=== PATIENT | male | born 1925 | race Caucasian/White ===

== ENCOUNTER 2016-08-02 11:11 | Emergency (ER) | payer MEDICARE ==
[2016-08-02 11:32] VITALS: BP 136/80
--- NOTE | 2016-08-02 11:42 | EDM.PDOC ---
ED HPI GENERAL MEDICAL PROBLEM - General Chief Complaint: Genitourinary Problem Stated Complaint: BLOOD IN URINE Time Seen by Provider: 08/02/16 11:42 Source of Information: Reports: Patient History Limitations: Reports: No Limitations - History of Present Illness INITIAL COMMENTS - FREE TEXT/NARRATIVE: Pt arrived with hematuria. This does not cause him any pain. 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/15 11:41 [bee venom (honey bee)] Shock Home Meds: Home Meds Aspirin 81 mg PO BEDTIME 07/24/15 [History] Rosuvastatin [Crestor] 10 mg PO ASDIRECTED 07/24/15 [History] Past Medical History HEENT History: Reports: Cataract, Glaucoma, Hard of Hearing, Impaired Vision, Sinusitis Gastrointestinal History: Reports: Chronic Constipation Musculoskeletal History: Reports: Arthritis, Fracture, Other (See Below) Other Musculoskeletal History: left elbow Hematologic History: Reports: Blood Transfusion(s) - Infectious Disease History Infectious Disease History: Reports: Chicken Pox, Measles, Mumps - Past Surgical History HEENT Surgical History: Reports: Cataract Surgery Male Surgical History: Reports: TURP-Transurethral Resection of Prostate Musculoskeletal Surgical History: Reports: Hip Replacement, Other (See Below) Social & Family History - Tobacco Use Smoking Status *Q: Never Smoker Second Hand Smoke Exposure: No - Caffeine Use Caffeine Use: Reports: None - Alcohol Use Days Per Week of Alcohol Use: 5 Number of Drinks Per Day: 2 Total Drinks Per Week: 10 - Recreational Drug Use Recreational Drug Use: No ED ROS GENERAL - Review of Systems Review Of Systems: See Below Constitutional: Reports: No Symptoms HEENT: Reports: No Symptoms Respiratory: Reports: No Symptoms Cardiovascular: Reports: No Symptoms Endocrine: Reports: No Symptoms GI/Abdominal: Reports: No Symptoms : Reports: Hematuria, Other (pt is having hematuria without pain . He states this started this am. He has ad a tur in the past. He has no pain with voiding. He did have some difficulty voiding early this am. While he was here he had trouble at first and then he felt like a blood clot was present that let loose and he voided well. ) Musculoskeletal: Reports: No Symptoms Skin: Reports: No Symptoms ED EXAM, RENAL/ - Physical Exam Exam: See Below Text/Narrative:: Pt arrived with blood in the urine. He is not having pain with voiding. Exam Limited By: No Limitations General Appearance: Alert, Anxious Ears: Normal TMs Nose: Normal Inspection Throat/Mouth: Normal Inspection Head: Atraumatic Neck: Normal Inspection Respiratory/Chest: No Respiratory Distress Cardiovascular: Regular Rate, Rhythm GI/Abdominal: Soft, Non-Tender Rectal (Males) Exam: Deferred Back Exam: Normal Inspection Extremities: Normal Inspection Course - Vital Signs Last Recorded V/S: Last Vital Signs Temp 36.5 C 08/02/16 11:33 Pulse 69 08/02/16 11:33 Resp 16 08/02/16 11:33 BP 136/80 08/02/16 11:33 Pulse Ox 94 L 08/02/16 11:33 - Orders/Labs/Meds Orders: Active Orders 24 hr Category Date Time Status Abdomen Pelvis w Cont [CT] Stat Exams 08/02/16 11:54 Taken CULTURE URINE [RM] Stat Lab 08/02/16 11:47 Received CULTURE URINE [RM] Stat Lab 08/02/16 13:10 Uncollected Iopamidol [Isovue-300 (61%)] Med 08/02/16 12:12 Active 100 ml IV . DIRECTED PRN Sodium Chloride 0.9% [Normal Saline] 1,000 ml Med 08/02/16 12:00 Active IV ASDIRECTED Sodium Chloride 0.9% [Normal Saline] 74 ml Med 08/02/16 12:15 Active IV ASDIRECTED Medication Orders Sodium Chloride (Normal Saline) 1,000 mls @ 400 mls/hr IV ASDIRECTED ILIANA Last Admin: 08/02/16 12:39 Dose: 400 mls/hr Sodium Chloride (Normal Saline) 74 mls @ 3.4 mls/sec IV ASDIRECTED ILIANA Last Admin: 08/02/16 12:31 Dose: 3.4 mls/sec Iopamidol (Isovue-300 (61%)) 100 ml IV . DIRECTED PRN PRN Reason: RADIOLOGY EXAM Stop: 08/03/16 12:13 Last Admin: 08/02/16 12:31 Dose: 100 ml Labs: Laboratory Tests 08/02/16 08/02/16 08/02/16 Range/Units 11:41 11:41 11:41 WBC 6.6 (4.5-11.0) K/uL RBC 4.48 (4.30-5.90) M/uL Hgb 13.7 (12.0-15.0) g/dL Hct 41.4 (40.0-54.0) % MCV 92 (80-98) fL MCH 31 (27-31) pg MCHC 33 (32-36) % Plt Count 289 (150-400) K/uL Neut % (Auto) 76 H (36-66) % Lymph % (Auto) 13 L (24-44) % [place] % (Auto) 10 H (2-6) % Eos % (Auto) 1 L (2-4) % Baso % (Auto) 1 (0-1) % APTT (27.0-36.0) sec Sodium (140-148) mmol/L Potassium (3.6-5.2) mmol/L Chloride (100-108) mmol/L Carbon Dioxide (21-32) mmol/L Anion Gap (5.0-14.0) mmol/L BUN (7-18) mg/dL Creatinine (0.8-1.3) mg/dL Est Cr Clr Drug Dosing mL/min Estimated GFR (MDRD) (>60) Glucose (74-106) mg/dL Calcium (8.5-10.1) mg/dL Total Bilirubin (0.2-1.0) mg/dL AST (15-37) U/L ALT (12-78) U/L Alkaline Phosphatase (46-116) U/L C-Reactive Protein 0.89 H (0.0-0.3) mg/dL Total Protein (6.4-8.2) g/dL Albumin (3.4-5.0) g/dL Globulin (2.3-3.5) g/dL Albumin/Globulin Ratio (1.2-2.2) Urine Color Brown Urine Appearance Cloudy Urine pH 5.0 (4.5-8.0) Ur Specific [place] 1.020 (1.008-1.030) Urine Protein 100 H (NEGATIVE) mg/dL Urine Glucose (UA) Normal (NEGATIVE) mg/dL Urine Ketones Negative (NEGATIVE) mg/dL Urine Occult Blood Large (NEGATIVE) Urine Nitrite Negative (NEGAITVE) Urine Bilirubin Negative (NEGATIVE) Urine Urobilinogen 1 (NORMAL) mg/dL Ur Leukocyte Esterase Moderate (NEGATIVE) Urine RBC Packed H (0-5) Urine WBC 10-20 H (0-5) Ur Epithelial Cells Not seen Amorphous Sediment Not seen Urine Bacteria Not seen Urine Mucus Not seen 08/02/16 08/02/16 Range/Units 11:41 11:43 WBC (4.5-11.0) K/uL RBC (4.30-5.90) M/uL Hgb (12.0-15.0) g/dL Hct (40.0-54.0) % MCV (80-98) fL MCH (27-31) pg MCHC (32-36) % Plt Count (150-400) K/uL Neut % (Auto) (36-66) % Lymph % (Auto) (24-44) % [place] % (Auto) (2-6) % Eos % (Auto) (2-4) % Baso % (Auto) (0-1) % APTT 29.0 (27.0-36.0) sec Sodium 137 L (140-148) mmol/L Potassium 4.3 (3.6-5.2) mmol/L Chloride 103 (100-108) mmol/L Carbon Dioxide 26 (21-32) mmol/L Anion Gap 12.3 (5.0-14.0) mmol/L BUN 24 H (7-18) mg/dL Creatinine 1.1 (0.8-1.3) mg/dL Est Cr Clr Drug Dosing 48.98 mL/min Estimated GFR (MDRD) > 60 (>60) Glucose 106 (74-106) mg/dL Calcium 8.9 (8.5-10.1) mg/dL Total Bilirubin 0.4 (0.2-1.0) mg/dL AST 21 (15-37) U/L ALT 20 (12-78) U/L Alkaline Phosphatase 72 (46-116) U/L C-Reactive Protein (0.0-0.3) mg/dL Total Protein 7.7 (6.4-8.2) g/dL Albumin 3.3 L (3.4-5.0) g/dL Globulin 4.4 H (2.3-3.5) g/dL Albumin/Globulin Ratio 0.8 L (1.2-2.2) Urine Color Urine Appearance Urine pH (4.5-8.0) Ur Specific [place] (1.008-1.030) Urine Protein (NEGATIVE) mg/dL Urine Glucose (UA) (NEGATIVE) mg/dL Urine Ketones (NEGATIVE) mg/dL Urine Occult Blood (NEGATIVE) Urine Nitrite (NEGAITVE) Urine Bilirubin (NEGATIVE) Urine Urobilinogen (NORMAL) mg/dL Ur Leukocyte Esterase (NEGATIVE) Urine RBC (0-5) Urine WBC (0-5) Ur Epithelial Cells Amorphous Sediment Urine Bacteria Urine Mucus Meds: Medications Generic Name Dose Route Start Last Admin Trade Name Freq PRN Reason Stop Dose Admin Sodium Chloride 1,000 mls @ 400 mls/hr 08/02/16 12:00 08/02/16 12:39 Normal Saline IV 400 mls/hr ASDIRECTED ILIANA Administration Sodium Chloride 74 mls @ 3.4 mls/sec 08/02/16 12:15 08/02/16 12:31 Normal Saline IV 3.4 mls/sec ASDIRECTED ILIANA Administration Iopamidol 100 ml 08/02/16 12:12 08/02/16 12:31 Isovue-300 (61%) IV 08/03/16 12:13 100 ml . DIRECTED PRN Administration RADIOLOGY EXAM Discontinued Medications Generic Name Dose Route Start Last Admin Trade Name Freq PRN Reason Stop Dose Admin Sodium Chloride 10 ml 08/02/16 12:12 08/02/16 12:31 Saline Flush FLUSH 08/02/16 12:13 10 ml ONETIME ONE Administration - Re-Assessments/Exams Free Text/Narrative Re-Assessment/Exam: 08/02/16 14:04 cat scan revealed a 1.5 cm nodule near the area of his previous TUR. This is felt to be the source of his bleeding. He was able to vouid 600cc but had a residual of 245. The urine continues to be bloody. Departure - Departure Time of Disposition: 14:06 Disposition: Home, Self-Care 01 Condition: fair Clinical Impression: Bladder polyp, Hematuria - Discharge Information Forms: ED Department Discharge Care Plan Goals: To [facility] [employer] to see Dr Roberts--Urology. copy cat scan report, all labs, to go with pt, the cat scn was sent through the [employer] system - My Orders Last 24 Hours: My Active Orders 08/02/16 11:47 CULTURE URINE [RM] Stat 08/02/16 11:54 Abdomen Pelvis w Cont [CT] Stat 08/02/16 12:00 Sodium Chloride 0.9% [Normal Saline] 1,000 ml IV ASDIRECTED 08/02/16 12:12 Iopamidol [Isovue-300 (61%)] 100 ml IV . DIRECTED PRN 08/02/16 12:15 Sodium Chloride 0.9% [Normal Saline] 74 ml IV ASDIRECTED 08/02/16 13:10 CULTURE URINE [RM] Stat - Assessment/Plan Last 24 Hours: My Active Orders 08/02/16 11:47 CULTURE URINE [RM] Stat 08/02/16 11:54 Abdomen Pelvis w Cont [CT] Stat 08/02/16 12:00 Sodium Chloride 0.9% [Normal Saline] 1,000 ml IV ASDIRECTED 08/02/16 12:12 Iopamidol [Isovue-300 (61%)] 100 ml IV . DIRECTED PRN 08/02/16 12:15 Sodium Chloride 0.9% [Normal Saline] 74 ml IV ASDIRECTED 08/02/16 13:10 CULTURE URINE [RM] Stat
[2016-08-02] MEDS ORDERED: Sodium Chloride 0.9% 1,000 ML IV SCH (12:00)
[2016-08-02] MEDS ORDERED: Iopamidol 612 MG/ML 100 ML Bottle IV PRN (12:12)
[2016-08-02] MEDS ORDERED: Sodium Chloride 0.9% 10 ML Syringe FLUSH ONE (12:12)
== END 2016-08-02 14:18 | disposition home or self-care (01) ==
LOC: JP.ED 11:11
DX: R31.9 Hematuria, unspecified (principal); D41.4 Neoplasm of uncertain behavior of bladder; Z98.49 Cataract extraction status, unspecified eye; Z96.649 Presence of unspecified artificial hip joint; Z98.890 Other specified postprocedural states; Z79.82 Long term (current) use of aspirin; Z91.030 Bee allergy status
CPT/HCPCS: 36415; 74177; 80053; 81001; 85025; 85730; 86140; 87086; 96360; 96361; 99284; J7030; J7040; J7050; Q9967

== ENCOUNTER 2016-08-27 16:10 | Emergency (ER) | payer MEDICARE ==
--- NOTE | 2016-08-27 17:20 | EDM.PDOC ---
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 as well as bladder polyps, denies any other symptoms - Related Data Allergies Allergy/AdvReac Type Severity Reaction Status Date / Time venom-honey bee Allergy Severe Anaphylactic Verified 07/24/15 11:41 [bee venom (honey bee)] Shock Home Meds: Home Meds Aspirin 81 mg PO BEDTIME 07/24/15 [History] Rosuvastatin [Crestor] 10 mg PO ASDIRECTED 07/24/15 [History] Finasteride [Finasteride] 08/27/16 [History] Past Medical History HEENT History: Reports: Cataract, Glaucoma, Hard of Hearing, Impaired Vision, Sinusitis Gastrointestinal History: Reports: Chronic Constipation Musculoskeletal History: Reports: Arthritis, Fracture, Other (See Below) Other Musculoskeletal History: left elbow Hematologic History: Reports: Blood Transfusion(s) - Infectious Disease History Infectious Disease History: Reports: Chicken Pox, Measles, Mumps - Past Surgical History HEENT Surgical History: Reports: Cataract Surgery Male Surgical History: Reports: TURP-Transurethral Resection of Prostate Musculoskeletal Surgical History: Reports: Hip Replacement, Other (See Below) Social & Family History - Tobacco Use Smoking Status *Q: Never Smoker Second Hand Smoke Exposure: No - Caffeine Use Caffeine Use: Reports: None - Alcohol Use Days Per Week of Alcohol Use: 5 Number of Drinks Per Day: 2 Total Drinks Per Week: 10 - Recreational Drug Use Recreational Drug Use: No ED ROS GENERAL - Review of Systems Review Of Systems: See Below Constitutional: Reports: Fever, Chills, Weakness HEENT: Reports: No Symptoms Respiratory: Reports: No Symptoms Cardiovascular: Reports: No Symptoms GI/Abdominal: Reports: No Symptoms : Reports: No Symptoms Musculoskeletal: Reports: No Symptoms Skin: Reports: No Symptoms Neurological: Reports: Difficulty Walking, Weakness ED EXAM, GENERAL - Physical Exam Exam: See Below Free Text/Narrative:: General: Elderly male, not in any distress, alert and oriented x3 HEENT: head is atraumatic normocephalic, eyes pupils equal round reactive to light, sclera clear no conjunctivitis appreciated. Ears hearing aids in place bilaterally. Nose no septal deviation, nares are clear, no blood present. Mouth mucosa is moist and pink no erythema or exudate noted in soft palate, tongue is midline uvula is midline, dentition is intact. Neck: Supple no thyromegaly no tracheal deviation. Nodes: Cervical nodes subclavicular nodes nontender no palpable lymphadenopathy noted. Lungs: clear to auscultation bilaterally with symmetrical respirations, no adventitious noise appreciated. CV: Regular rate and rhythm S1 and S2 appreciated no murmurs rubs or gallops noted. Abdomen: Soft, nontender, no palpable masses or organomegaly appreciated, no distention no guarding bowel sounds are present, . Neuro: Cranial nerves II through XII grossly intact Skin: Warm and dry, intact Extremities: No lower extremity edema appreciated, Course - Vital Signs Last Recorded V/S: Last Vital Signs Temp 103.1 F H 08/27/16 18:05 Pulse 87 08/27/16 18:05 Resp 16 08/27/16 18:05 BP 117/65 08/27/16 18:05 Pulse Ox 92 L 08/27/16 18:05 - Orders/Labs/Meds Orders: Active Orders 24 hr Category Date Time Status Vital Signs [RC] Q1H Care 08/27/16 17:17 Active CULTURE BLOOD [BC] Urgent Lab 08/27/16 17:35 Received CULTURE BLOOD [BC] Urgent Lab 08/27/16 17:35 Received Blood Culture x2 Reflex Set [OM.PC] Urgent Oth 08/27/16 17:17 Ordered Labs: Laboratory Tests 08/27/16 08/27/16 08/27/16 Range/Units 17:35 17:35 17:35 WBC 4.6 (4.5-11.0) K/uL RBC 4.25 L (4.30-5.90) M/uL Hgb 13.1 (12.0-15.0) g/dL Hct 38.9 L (40.0-54.0) % MCV 92 (80-98) fL MCH 31 (27-31) pg MCHC 34 (32-36) % Plt Count 118 L (150-400) K/uL Neut % (Auto) 90 H (36-66) % Lymph % (Auto) 5 L (24-44) % [place] % (Auto) 6 (2-6) % Eos % (Auto) 0 L (2-4) % Baso % (Auto) 0 (0-1) % Sodium 128 L (140-148) mmol/L Potassium 3.9 (3.6-5.2) mmol/L Chloride 94 L (100-108) mmol/L Carbon Dioxide 27 (21-32) mmol/L Anion Gap 10.9 (5.0-14.0) mmol/L BUN 23 H (7-18) mg/dL Creatinine 1.3 (0.8-1.3) mg/dL Est Cr Clr Drug Dosing 41.83 mL/min Estimated GFR (MDRD) 52 L (>60) Glucose 132 H (74-106) mg/dL Lactic Acid 1.5 (0.4-2.0) mmol/L Calcium 8.2 L (8.5-10.1) mg/dL Total Bilirubin (0.2-1.0) mg/dL AST (15-37) U/L ALT (12-78) U/L Alkaline Phosphatase (46-116) U/L C-Reactive Protein 14.32 H (0.0-0.3) mg/dL Total Protein (6.4-8.2) g/dL Albumin (3.4-5.0) g/dL Globulin (2.3-3.5) g/dL Albumin/Globulin Ratio (1.2-2.2) Urine Color Urine Appearance Urine pH (4.5-8.0) Ur Specific [place] (1.008-1.030) Urine Protein (NEGATIVE) mg/dL Urine Glucose (UA) (NEGATIVE) mg/dL Urine Ketones (NEGATIVE) mg/dL Urine Occult Blood (NEGATIVE) Urine Nitrite (NEGAITVE) Urine Bilirubin (NEGATIVE) Urine Urobilinogen (NORMAL) mg/dL Ur Leukocyte Esterase (NEGATIVE) Urine RBC (0-5) Urine WBC (0-5) Ur Epithelial Cells Amorphous Sediment Urine Bacteria Urine Mucus Urine Other 08/27/16 08/27/16 Range/Units 17:41 18:03 WBC (4.5-11.0) K/uL RBC (4.30-5.90) M/uL Hgb (12.0-15.0) g/dL Hct (40.0-54.0) % MCV (80-98) fL MCH (27-31) pg MCHC (32-36) % Plt Count (150-400) K/uL Neut % (Auto) (36-66) % Lymph % (Auto) (24-44) % [place] % (Auto) (2-6) % Eos % (Auto) (2-4) % Baso % (Auto) (0-1) % Sodium 129 L (140-148) mmol/L Potassium 3.9 (3.6-5.2) mmol/L Chloride 94 L (100-108) mmol/L Carbon Dioxide 26 (21-32) mmol/L Anion Gap 12.9 (5.0-14.0) mmol/L BUN 23 H (7-18) mg/dL Creatinine 1.2 (0.8-1.3) mg/dL Est Cr Clr Drug Dosing 45.32 mL/min Estimated GFR (MDRD) 57 L (>60) Glucose 133 H (74-106) mg/dL Lactic Acid (0.4-2.0) mmol/L Calcium 8.2 L (8.5-10.1) mg/dL Total Bilirubin 0.5 (0.2-1.0) mg/dL AST 72 H D (15-37) U/L ALT 49 D (12-78) U/L Alkaline Phosphatase 67 (46-116) U/L C-Reactive Protein (0.0-0.3) mg/dL Total Protein 7.0 (6.4-8.2) g/dL Albumin 2.8 L (3.4-5.0) g/dL Globulin 4.2 H (2.3-3.5) g/dL Albumin/Globulin Ratio 0.7 L (1.2-2.2) Urine Color [place] Urine Appearance Cloudy Urine pH 5.0 (4.5-8.0) Ur Specific [place] 1.020 (1.008-1.030) Urine Protein 30 H (NEGATIVE) mg/dL Urine Glucose (UA) Normal (NEGATIVE) mg/dL Urine Ketones Negative (NEGATIVE) mg/dL Urine Occult Blood Moderate (NEGATIVE) Urine Nitrite Negative (NEGAITVE) Urine Bilirubin Negative (NEGATIVE) Urine Urobilinogen Normal (NORMAL) mg/dL Ur Leukocyte Esterase Negative (NEGATIVE) Urine RBC 0-5 (0-5) Urine WBC 0-5 (0-5) Ur Epithelial Cells Moderate Amorphous Sediment Few Urine Bacteria Few Urine Mucus Moderate Urine Other See note Meds: Medications Discontinued Medications Generic Name Dose Route Start Last Admin Trade Name Christian PRN Reason Stop Dose Admin Ibuprofen 600 mg 08/27/16 18:05 Motrin PO 08/27/16 18:06 ONETIME ONE Departure - Departure Time of Disposition: 18:18 Disposition: Home, Self-Care 01 Condition: Good Clinical Impression: Tick bite Qualifiers: Encounter type: initial encounter Qualified Code(s): W57.XXXA - Bitten or stung by nonvenomous insect and other nonvenomous arthropods, initial encounter - Discharge Information Forms: ED Department Discharge Additional Instructions: Take full course of antibiotics, use ibuprofen and Tylenol to help control fevers, Please followup with your primary care provider in 5-7 days if not better, please call return to the emergency department with worsening of symptoms. - My Orders Last 24 Hours: My Active Orders 08/27/16 17:17 Vital Signs [RC] Q1H Blood Culture x2 Reflex Set [OM.PC] Urgent 08/27/16 17:35 CULTURE BLOOD [BC] Urgent CULTURE BLOOD [BC] Urgent - Assessment/Plan Last 24 Hours: My Active Orders 08/27/16 17:17 Vital Signs [RC] Q1H Blood Culture x2 Reflex Set [OM.PC] Urgent 08/27/16 17:35 CULTURE BLOOD [BC] Urgent CULTURE BLOOD [BC] Urgent Plan: Assessment Acuity = acute Site and laterality = fever, chills Etiology = suspicious for tickborne illness Manifestations = none Location of injury = Home Lab values = WBC 4.6 still normal range but low platelets low at 118 consistent , cytopenias sodium low at 128 consistent hyponatremia lactic acid normal at 1.5 CRP elevated at 14.3 urinalysis is within normal limits Plan I did review lab work with him he does admit there is a possibility of tick exposure I offered him hospitalization admission he declined he would prefer to try anabolic treatment at home and will return with worsening of symptoms prescription written for doxycycline 100 mg by mouth twice a day 14 days and follow-up primary care in 5-7 days if no improvement Patient was in agreement with the plan all questions were answered, they were instructed to return to the emergency department or call for worsening symptoms. This note was dictated using [employer] voice recognition software please call with any questions.
[2016-08-27] MEDS ORDERED: Ibuprofen 600 MG Tab PO ONE (18:05)
[2016-08-27 18:07] VITALS: BP 117/65
== END 2016-08-27 18:33 | disposition home or self-care (01) ==
LOC: JP.ED 16:10
DX: T14.8 Other injury of unspecified body region (principal); R53.1 Weakness; R50.9 Fever, unspecified; Z98.49 Cataract extraction status, unspecified eye; Z96.649 Presence of unspecified artificial hip joint; Z79.899 Other long term (current) drug therapy; Z91.030 Bee allergy status; W57.XXXA Bitten or stung by nonvenomous insect and other nonvenomous arthropods, initial encounter
CPT/HCPCS: 36415; 80048; 80053; 81001; 83605; 85025; 86140; 87040; 99285; A9270; 99283